=== PATIENT | female | born 1975 ===

== ENCOUNTER 2021-11-27 06:07 | Day surgery (SDC) | payer OTHER ==
[2021-11-27] MEDS ORDERED: KETO10TA2 PO (14:17)
[2021-11-27] MEDS ORDERED: PERCOCET 5-3251 EACH PO (14:17)
[2021-11-27] MEDS ORDERED: DERMOPLAST PAIN78 GM TOP (14:18)
[2021-11-27] MEDS ORDERED: NEURONTIN300 MG PO (14:18)
[2021-11-27] MEDS ORDERED: AMOX1TAB5 PO (14:19)
== END 2021-11-27 20:00 | disposition home or self-care (01) ==
LOC: CIR.AMB 06:07
PROVIDERS: ATTEND Surgery
DX: K60.3 Anal fistula (principal)

== ENCOUNTER 2022-04-23 08:42 | Day surgery (SDC) | payer OTHER ==
[~2022-04-23 08:42] MED LIST: AMOX1TAB5 PO; DERMOPLAST PAIN78 GM TOP; KETO10TA2 PO; NEURONTIN300 MG PO; PERCOCET 5-3251 EACH PO
[2022-04-23] MEDS ORDERED: KETO10TA2 PO (13:33)
[2022-04-23] MEDS ORDERED: DERMOPLAST PAIN78 GM TOP (13:34)
[2022-04-23] MEDS ORDERED: NEURONTIN300 MG PO (13:34)
[2022-04-23] MEDS ORDERED: AMOX1TAB5 PO (13:34)
[2022-04-23] MEDS ORDERED: PERCOCET 5-3251 EACH PO (13:34)
== END 2022-04-23 18:15 | disposition home or self-care (01) ==
LOC: CIR.AMB 08:42
PROVIDERS: ATTEND Surgery
DX: K60.3 Anal fistula (principal); K60.1 Chronic anal fissure; K64.8 Other hemorrhoids; E78.00 Pure hypercholesterolemia, unspecified; Z91.09 Other allergy status, other than to drugs and biological substances